=== PATIENT | female | born 1995 | race Caucasian/White ===

== ENCOUNTER 2019-08-14 19:49 | Inpatient (IN) | payer SELFPAY ==
[2019-08-14 19:53] VITALS: PULSE 129; RESP 18; TEMP 36.9; O2SAT 97; BMI 31.1
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
[2019-08-14] MEDS: ibuprofen 600 mg Tablet PO (20:34)
[2019-08-14 20:57] LABS: Basophils # 0.1 10^3/uL (0.0-0.1); Basophils % 0.4 %; Eosinophils # 0.1 10^3/uL (0.0-0.8); Eosinophils % 0.6 %; Hematocrit 41.6 % (37.0-47.0); Hemoglobin 13.5 g/dL (11.5-15.3); Lymphocytes # 2.5 10^3/uL (0.8-4.8); Lymphocytes % 14.9 %; Mean Corpuscular HGB Conc 32.5 g/dL (30.0-36.0); Mean Corpuscular Hemoglobin 29.3 pg (28.0-34.0); Mean Corpuscular Volume 90.4 fL (81-99); Mean Platelet Volume 10.6 fL (7.4-10.4); Monocytes # 1.2 10^3/uL (0.2-0.9); Monocytes % 7.2 %; Neutrophils % 76.6 %; Nucleated Red Blood Cells % 0 %; Platelet Count 250 10^3/cmm (130-400)
[2019-08-14 21:03] LABS: HCG Qualitative Urine. Negative (Negative)
[2019-08-14 21:06] LABS: Add Urine Microscopic? YES; Bilirubin Urine Neg (NEGATIVE); Blood Urine Neg (Negative); Glucose Urine UA Norm (Normal); Ketones Urine Negative (Negative); Leukocyte Esterase Urine Negative (Negative); Nitrate Urine Negative (Negative); Protein Urine Neg (Negative); Urine Appearance SL Hazy (CLEAR); Urine Color Yellow (Yellow); Urobilinogen Urine Norm (Negative); pH Urine 7 (5-7)
[2019-08-14 21:07] LABS: Add Urine Culture? No; Bacteria Urine TRACE; Mucus Urine TRACE; Squamous Epithelial Cell Urine 15-25 (0-5); WBC Urine 0-4 /hpf (0-5)
[2019-08-14 21:10] LABS: Amphetamines Screen Urine Negative (Negative); Barbiturates Screen Urine Negative (Negative); Benzodiazepines Screen Urine Negative (Negative); Cocaine Screen Urine Negative (Negative); Opiate Screen Urine Negative (Negative); PCP Screen Urine Negative (Negative); THC Screen Urine Positive (Negative)
[2019-08-14 21:14] LABS: Alanine Aminotransferase 13 U/L (0-33); Albumin Level 4.5 g/dL (3.5-5.2); Alkaline Phosphatase 62 IU/L (35-105); Aspartate Amino Transferase 17 U/L (0-32); Blood Urea Nitrogen 8 mg/dL (6-20); Calcium 9.4 mg/dL (8.5-10.5); Carbon Dioxide 26 mmol/L (22-29); Chloride 106 mmol/L (98-107); Globulin 2.1 g/dL (1.3-4.6); Glomerular Filtration Rate 78.3 mL/min (90-130); Glucose 96 mg/dL (65-115); Osmolality Calculated 290 mOsm/kg (285-295); Sodium 142 mmol/L (136-145); Total Bilirubin 0.4 mg/dL (0.15-1.2); Total Protein 6.6 g/dL (6.6-8.7)
[2019-08-14 21:23] LABS: Acetaminophen < 5.0 ug/mL (10-30); Alcohol Level < 10 mg/dL (0-10); Salicylate < 0.3 mg/dL (3-10)
[2019-08-14 22:40] VITALS: BP 118/72; PULSE 66; RESP 21; TEMP 36.8; O2SAT 98
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
[2019-08-15 06:00] VITALS: BP 107/58; PULSE 60; RESP 18; TEMP 36.8; O2SAT 98
--- NOTE | 2019-08-15 10:29 | P.HP_ITS ---
Providers/Chief Complaint Admitting Physician: Bebo Becerril MD Chief Complaint: si HPI NPU History of Present Illness Chief complaint: I just let things build up and never learned to deal with things. History of present illness:Barbara Alexander is a 24 year old female with no prior psychiatric history who presented to the emergency room last night in acute emotional crisis reporting that she was having suicidal thoughts. She had no intent or plan but the thoughts frightened her. She was distraught and o verwhelmed and did not know how to handle her current situation. When she woke up yesterday morning, she was doing quite well. In fact, she reports that she had a good day. Problems involved when her housemate and baby's daddy called and wanted a ride home from work. They do not have a car that is operational. Her parents sometimes give him a ride but they did not have money for gas. He is working in [place]. He became angry. It is unclear how he got home. However when he got home, he was clearly irritable. He began calling her names. He claimed that she was unfaithful to him while he was away at work. He called her demeaning names regarding that. He went over and talked to their 1-year-old son and said bad things about her in front of him. She became increasingly distraught. She did not know how to handle it. She felt like this had become a trend and she was fearful that the relationship would end. She began having suicidal thoughts. She came to the emergency room. Otherwise, she reports of feeling despondent frequently. She says this has only evolved since the of her son 1 year ago. She did receive a brief trial of Celexa. She did not like Celexa as she claims that it made her more irritable. However she also later states that she became more despondent after stopping the antidepressant. She did denies any current suicidal or homicidal ideation. She denies any history of auditory or visual hallucinations. She denies any history of abuse. Her sleep is good. Her appetite is good. She is looking forward to an upcoming trip with her family on the [facility]. She is irritable. She feels hopeless frequently. She is sad and blue on a daily basis. Her urine drug screen was positive for marijuana. However she denies any history of sig nificant alcohol or substance use on a regular basis. There is no history of DWIs. She does not believe she is but she would not mind becoming .: I missed the baby stage. She would like to have another baby because she missed taking care of infants. However she is later she states that she has only been depressed since the of her child. She does not speak of her child as providing her a sense of self-esteem in terms of her role in motherhood but more as a distraction from her boredom. Laboratory Tests 08/14/19 08/14/19 20:20 20:46 Urine Opiates Screen Negative Ur Barbiturates Screen Negative Ur Phencyclidine Scrn Negative Ur Amphetamines Screen Negative U Benzodiazepines Scrn Negative Urine Cocaine Screen Negative U Marijuana (THC) Screen Positive H Ethyl Alcohol < 10 Mental health history: She has no history of inpatient hospitalizations. She has no history of suicide attempts. She has never been seen by psychiatrist. She was treated for depression by her primary care physician with Celexa for 2 months. She says that it made her feel irritable and she did not like the effect of the medication. She does not remember the dosage. She has never been in any type of counseling. Family psychiatric history: Relative was treated for ADHD. Social history: The patient is from [place]. She is a high school graduate. She had one job at [employer]. She worked for a few months and quit because I could not stand the rudeness of people. She currently lives with her father of her 1-year-old son. She spends her time taking care of the child and also taking care of the children or friends. Her family lives nearby but are not particularly emotionally supportive. Her boyfriend lives with her. He is employed [employer]. Legal history: In November 2018 she was arrested before not wearing her seatbelt. Past medical history: Allergies: No known drug allergies Medications: No medications Surgeries: She has had an appendectomy and a tonsillectomy : She does not believe she is but she would not mind becoming .: I missed the baby stage. She would like to have another baby because she missed taking care of infants. However she is later she states that she has only been depressed since the of her child. Meds NPU Home Medications Medication Instructions Recorded Confirmed Last Taken Type No Known Home Medications 08/14/19 08/14/19 Unknown History Allergies Allergy/AdvReac Type Severity Reaction Status Date / Time No Known Allergies Allergy Verified 08/14/19 20:34 PFSH NPU PFSH: Social History (Reviewed 08/14/19 @ 23:03 by Ishmael Aldridge MD, [facility] – [place], [place]) Smoking and tobacco status: current every day smoker Mental Status Exam MSE Comments: Mental Status Exam: The patient is a tall and healthy-appearing woman appearing approximately her stated age. Eye contact is good. Psychomo toric activity is unremarkable. She is believed to be a reliable informant in the information provided is consistent with that of the chart and internally consistent. Appearance: hygiene is fair; no gross neurological deficits., gait is unremarkable; AIMS=0 Speech: Speech is of normal rate and rhythm and easily understood. She speaks in free discourse and elaborates on answers when she is so motivated. Thought processes: Thought processes are abstract. Judgment is adequate for safety. Associations: intact Psychotic processes: There is no indication of guarding or paranoia. There is no attention to the internal stimuli. Auditory and visual hallucinations are denied. Judgment: Insight is fair. Problem solving skills are adequate for safety. Orientation: The patient is oriented to person, place time and situation. Memory: no deficits noted in immediate, intermediate, or remote spheres. Attention: The patient is alert and interpersonally engaged. Language: Verbalizations are coherent. Fund of knowledge: Fund of knowledge is adequate. Affect/Mood: Affect is consistent with a depressed mood. She denied suicidal ideation Affective range appropriate. Psychosis: perception unimpaired except through cognitive distortion; reality testing intact. Vitals/I&O/Wt Last Vital Signs Temp 98.3 F 08/15/19 06:00 Pulse 60 08/15/19 06:00 Resp 18 08/15/19 06:00 BP 107/58 08/15/19 06:00 Pulse Ox 98 08/15/19 06:00 Weight last 48 hrs Weight 104.326 kg Data NPU : 08/14/19 20:46 08/14/19 20:46 A&P Assessment and plan (1) Adjustment disorder with mixed disturbance of emotions and conduct: Status: Acute (2) Major depression, single episode: Status: Acute Qualifiers: Active/Remission status: currently active Major depression episode severity: mild Qualified Code(s): F32.0 - Major depressive disorder, single episode, mild Additional A&P Information Diagnoses: Adjustment disorder with disturbance of mood and conduct Major depression?recurrent, mild severity Assessment: Treatment plan: Due to the psychiatric conditions and treatment listed in the Assessment and Plan - the patient requires continued hospitalization. Will provide a safe and therapeutic environment for patient.. Will continue inpatient treatment to allow for medication adjustment and monitoring. Will continue q15 min safety checks. Hospital day #1: In discussion of her history of treatment with Celexa and its benefits and side effects, it was decided to initiate Prozac 10 mg daily targeting symptoms of depression. She was educated with regard to potential benefits and side effects and the time course of the evolution of those changes. Contingency plan is to stop medication should unexpected and intolerable side effects develop. It was also strongly recommended that she participate in individual or marital therapy as her coping skills seem to be inadequate for the stressors which she is experiencing. She will be entered into the full array of individual and group therapies as part of the adult psychiatric unit protocol. Nursing staff will be available on a 24-hour basis. Monitor patient's mood, sleep, appetite, and behavior closely. Encourage patient to participate in individual and group therapeutic sessions on the [place]. Estimated length of stay 5 days The expected benefits and potential side effects of patient's psychiatric medications were discussed with the patient. The patient understands and consents to treatment.CRITERIA FOR DISCHARGE: stable on medications and no longer an imminent risk Involuntary Hold Information 96 Hour Hold: 96 Hour Involuntary Admission: No Attestations NPU Medical Necessity Statement*: Patient will remain in the hospital another 4-6 nights to establish efficacy and tolerability of current medication and to coordinate entry into outpatient services. Coding Level of Care Code Acute Passport Support Associate for Sharad Hoyos Diagnoses Adjustment disorder with mixed disturbance of emotions and conduct F43.25 Major depression, single episode F32.0 Active/Remission status: currently active Major depression episode severity: mild
[2019-08-15] MEDS: fluoxetine 10 mg Capsule PO (11:23)
--- NOTE | 2019-08-15 11:46 | PC.RESP ---
Smoking Cessation information sent to patient.
[2019-08-15 14:00] VITALS: BP 114/74; PULSE 74; RESP 18; TEMP 37.5; O2SAT 98
[2019-08-15 21:32] VITALS: BP 112/67; PULSE 74; RESP 20; TEMP 36.7; O2SAT 96
[2019-08-15] MEDS: trazodone 50 mg Tablet PO (21:35)
[2019-08-16 06:00] VITALS: BP 99/55; PULSE 69; RESP 17; TEMP 37; O2SAT 99
--- NOTE | 2019-08-16 08:26 | P.PN_ITS ---
Subjective NPU Subjective: Interval history: Patient states that she slept well last night. She has tolerated medications. She is currently in the process of deciding what her plans are following discharge. She denies suicidal or homicidal ideation. Mental Status Exam MSE Comments: Mental Status Exam: The patient is a tall and healthy-appearing woman appearing approximately her stated age. Eye contact is good. Psychomotoric activity is unremarkable. She is believed to be a reliable informant in the information provided is consistent with that of the chart and internally consistent. Appearance: hygiene is fair; no gross neurological deficits., gait is unremarkable; AIMS=0 Speech: Speech is of normal rate and rhythm and easily understood. She speaks in free discourse and elaborates on answers when she is so motivated. Thought processes: Thought processes are abstract. Judgment is adequate for safety. Associations: intact Psychotic processes: There is no indication of guarding or paranoia. There is no attention to the internal stimuli. Auditory and visual hallucinations are denied. Judgment: Insight is fair. Problem solving skills are adequate for safety. Orientation: The patient is oriented to person, place time and situation. Memory: no deficits noted in immediate, intermediate, or remote spheres. Attention: The patient is alert and interpersonally engaged. Language: Verbalizations are coherent. Fund of knowledge: Fund of knowledge is adequate. Affect/Mood: Affect is consistent with a depressed mood. She denied suicidal ideation Affective range appropriate. Psychosis: perception unimpaired except through cognitive distortion; reality testing intact. Cognition: Patient Appearance: Appropriate Level of Consciousness: Awake, Alert, Appropriate and Follows Commands Patient Cognition Impaired: No Ability to Follow Directions: Good Patient Orientation (long list): Person, Place and Time Comprehension Ability: Understands Concepts Hallucination Type: None Delusion Description: Not Present Thought Process: Appropriate Affect: Affect Description: Calm Depressive Symptoms: Crying Spells and Hopelessness Behavior: Patient Behavior: Cooperative Speech Pattern: Appropriate Vitals/I&O/Wt Last Vital Signs Temp 98.6 F 08/16/19 06:00 Pulse 69 08/16/19 06:00 Resp 17 08/16/19 06:00 BP 99/55 08/16/19 06:00 Pulse Ox 99 08/16/19 06:00 Weight last 48 hrs Weight 104.326 kg Data NPU : 08/14/19 20:46 08/14/19 20:46 A&P Assessment and plan (1) Adjustment disorder with mixed disturbance of emotions and conduct: Status: Acute (2) Major depression, single episode: Status: Acute Qualifiers: Active/Remission status: currently active Major depression episode severity: mild Qualified Code(s): F32.0 - Major depressive disorder, single episode, mild Additional A&P Information Diagnoses: Adjustment disorder with disturbance of mood and conduct Major depression?recurrent, mild severity Assessment: Treatment plan: Due to the psychiatric conditions and treatment listed in the Assessment and Plan - the patient requires continued hospitalization. Will provide a safe and therapeutic environment for patient.. Will continue inpatient treatment to allow for medication adjustment and monitoring. Will continue q15 min safety checks. Hospital day #1: In discussion of her history of treatment with Celexa and its benefits and side effects, it was decided to initiate Prozac 10 mg daily targeting symptoms of depression. She was educated with regard to potential benefits and side effects and the time course of the evolution of those changes. Contingency plan is to stop medication should unexpected and intolerable side effects develop. It was also strongly recommended that she participate in individual or marital therapy as her coping skills seem to be inadequate for the stressors which she is experiencing. She will be entered into the full array of individual and group therapies as part of the adult psychiatric unit protocol. Nursing staff will be available on a 24-hour basis. Hospital day #2: Continue Prozac day #2. Patient working toward successful disc harge planning. Monitor patient's mood, sleep, appetite, and behavior closely. Encourage patient to participate in individual and group therapeutic sessions on the [facility]. Estimated length of stay 5 days The expected benefits and potential side effects of patient's psychiatric medications were discussed with the patient. The patient understands and consents to treatment.CRITERIA FOR DISCHARGE: stable on medications and no longer an imminent risk Involuntary Hold Information 96 Hour Hold: 96 Hour Involuntary Admission: No Attestations NPU Medical Necessity Statement*: Patient will remain in the hospital another 2-4 nights for assessment of medication efficacy and tolerability. Coding Level of Care Code Acute Production Officer for Sharad Hoyos Diagnoses Adjustment disorder with mixed disturbance of emotions and conduct F43.25 Major depression, single episode F32.0 Active/Remission status: currently active Major depression episode severity: mild
[2019-08-16] MEDS: fluoxetine 10 mg Capsule PO (08:27)
[2019-08-16 14:00] VITALS: BP 127/82; RESP 18; TEMP 36.3; O2SAT 100
[2019-08-16 22:00] VITALS: BP 111/56; PULSE 63; RESP 20; TEMP 36.6; O2SAT 96
[2019-08-16] MEDS: trazodone 50 mg Tablet PO (22:35)
--- NOTE | 2019-08-16 23:19 | PC.NURSE ---
patient requested meds for sleep
[2019-08-17 06:00] VITALS: BP 99/58; PULSE 55; RESP 16; TEMP 36.9; O2SAT 96
[2019-08-17] MEDS: fluoxetine 10 mg Capsule PO (08:25)
--- NOTE | 2019-08-17 10:54 | PM.NDC ---
Diagnoses at Discharge Discharge Diagnosis (1) Adjustment disorder with mixed disturbance of emotions and conduct: Status: Acute Problem details: Chief complaint: I just let things build up and never learned to deal with things. History of present illness:Barbara Alexander is a 24 year old female with no prior psychiatric history who presented to the emergency room last night in acute emotional crisis reporting that she was having suicidal thoughts. She had no intent or plan but the thoughts frightened her. She was distraught and overwhelmed and did not know how to handle her current situation. When she woke up yesterday morning, she was doing quite well. In fact, she reports that she had a good day. Problems involved when her housemate and baby's daddy called and wanted a ride home from work. They do not have a car that is operational. Her parents sometimes give him a ride but they did not have money for gas. He is working in [employer]. He became angry. It is unclear how he got home. However when he got home, he was clearly irritable. He began calling her names. He claimed that she was unfaithful to him while he was away at work. He called her demeaning names regarding that. He went over and talked to their 1-year-old son and said bad things about her in front of him. She became increasingly distraught. She did not know how to handle it. She felt like this had become a trend and she was fearful that the relationship would end. She began having suicidal thoughts. She came to the emergency room. Otherwise, she reports of feeling despondent frequently. She says this has only evolved since the of her son 1 year ago. She did receive a brief trial of Celexa. She did not like Celexa as she claims that it made her more irritable. However she also later states that she became more despondent after stopping the antidepressant. She did denies any current suicidal or homicidal ideation. She denies any history of auditory or visual hallucinations. She denies any history of abuse. Her sleep is good. Her appetite is good. She is looking forward to an upcoming trip with her family on the [facility]. She is irritable. She feels hopeless frequently. She is sad and blue on a daily basis. Her urine drug screen was positive for marijuana. However she denies any history of significant alcohol or substance use on a regular basis. There is no history of DWIs. (2) Major depression, single episode: Status: Acute Problem details: See above. Qualifiers: Active/Remission status: currently active Major depression episode severity: mild Qualified Code(s): F32.0 - Major depressive disorder, single episode, mild Reason for Visit Reason for Visit: si Hospital Course Discharge Summary The patient has responded very well to Prozac 10 mg daily. She says, It mellows me out. It really helps me. She has from the moment of her admission to the NPU denied suicidal or homicidal ideation, plan or intent. Her mood quickly improved and she is discharged for follow-up with local providers. The Prozac will be called into [facility]. She is also encouraged to pursue cognitive behavioral therapy. The closest provider may be behavioral health care. The education necessary to work-up with was provided. I also spent 15 minutes educating her about smoking. She understood my clear and emphatic encouragement to stop. Involuntary Hold Information 96 Hour Hold: 96 Hour Involuntary Admission: No Mental Status Exam MSE Comments: Ms. Nickerson is a tall and healthy-appearing woman who appears her stated age. Eye contact is good. Psychomotor activity is unremarkable. She is believed to be a reliable informant. She is cooperative. Mood is improved and calm. Reported previous depressive symptoms: Crying Spells and Hopelessness. Affect is appropriate. Hygiene is fair; no gross neurological deficits., gait is unremarkable; AIMS=0 Speech is of normal rate and volume, free of dysarthria, aprosody and pressure. Verbalizations are coherent. She is forthcoming and open in her responses to my inquiries Thought processes are abstract, linear and free of racing, blocking or looseness of associations. There is no indication psychotic symptoms such as but not limited to guarding, paranoia or internal stimuli. Auditory and visual hallucinations are denied. Judgment is adequate for safety. Insight is fair. Problem solving skills are adequate for safety. The patient is oriented to person, place time and situation. There are no deficits noted in immediate, intermediate, or remote memory. The patient is alert and interpersonally engaged. Fund of knowledge: Fund of knowledge is adequate. The patient denies suicidal or homicidal ideation, plan or intent. Perception is unimpaired except through cognitive distortion; reality testing intact. There is no cognitive impairment Patient Orientation (long list): Person, Place and Time Comprehension Ability: Understands Concepts Discharge Data Vitals: Last Vital Signs Temp 98.5 F 08/17/19 06:00 Pulse 55 L 08/17/19 06:00 Resp 16 08/17/19 06:00 BP 99/58 08/17/19 06:00 Pulse Ox 96 08/17/19 06:00 Discharge Plan Discharge Patient Disposition: Home, Self-Care Condition: Stable Prescriptions: New fluoxetine 10 mg Capsule 10 mg PO DAILY 30 Days Qty: 30 RF: 1 Discharge Orders: Discharge Order (Routine); Ordered 08/17/19 Ordered By: Jeffrey Murphy Discharge Diet: Usual diet Discharge Activity: Resume usual activity Discharge Attestations NPU Time Spent in Discharge Care*: greater than 30 min Specific Discharge Activities: Specific discharge activities: educating patient, discussing with child welfare caseworker/social workers/dc planners, documenting/other paperwork and evaluating patient/reviewing data Time Spent in Smoking Cessation: Time spent discussing smoking cessation with patient: more than 10 minutes Details of Smoking Cessation Education: Detailed discussion of primary and secondary smoke exposure. Reviewed the octogenarian survival study with her. Status at Discharge: Cognitive status at discharge: cognitively intact, Behavioral status at discharge: cooperative, Functional status at discharge: independent ambulation Overall status at discharge: patient is back to baseline Coding Level of Care Code Acute Head Of Mobile for Sharad Fwd Diagnoses Adjustment disorder with mixed disturbance of emotions and conduct F43.25 Major depression, single episode F32.0 Active/Remission status: currently active Major depression episode severity: mild
[2019-08-17 11:03] VITALS: BP 99/58; PULSE 55; RESP 16; TEMP 36.9; O2SAT 96
--- NOTE | 2019-08-18 09:09 | PC.NURSE ---
DISCHARGE MEDICATION CALLED INTO [facility] ([phone]) SPOKE TO ROBERTO. PROZAC 10 MG DAILY QTY #30, REFILL 1. MED ORDERED BY ANGIE ADAMS
== END 2019-08-17 11:25 | disposition home or self-care (01) | DRG 882 ==
LOC: ER 21:09 → NP 22:13
PROVIDERS: Family Medicine; Admitting Provider Psychiatry & Neurology Psychiatry; Visit Provider Psychiatry & Neurology Psychiatry
DX: F43.25 Adjustment disorder with mixed disturbance of emotions and conduct (principal); F32.0 Major depressive disorder, single episode, mild
CPT/HCPCS: 12345; 80053; 80306; 80307; 81001; 81025; 85025; 99281